=== PATIENT | female | born 1965 | race Caucasian/White ===

== ENCOUNTER 2019-11-17 16:52 | Outpatient (CLI) | payer BC, SELFPAY ==
--- NOTE | ~2019-11-17 | US_ITS ---
EXAMINATION: US venous doppler LE RT EXAM DATE: 11/17/2019 17:48 INDICATION: Right leg swelling. TECHNIQUE: Multiple grayscale, color flow and Doppler images of the right lower extremity deep venous system were obtained and reviewed. There is no prior study for comparison. FINDINGS: The right common femoral, femoral and profunda veins demonstrate normal color flow, respira tory variation, augmentation and compressibility. Compressibility, color flow confirmed within the r ight popliteal, posterior tibial, peroneal, and greater saphenous veins. IMPRESSION: 1. No right lower extremity deep venous thrombosis. Reviewed, dictated and finalized at location A.
== END 2019-11-17 16:53 | disposition home or self-care (01) ==
LOC: ANHIMG 16:56
PROVIDERS: PCP Physician Assistant; Visit Provider Orthopaedic Surgery
DX: R60.0 Localized edema (principal)
CPT/HCPCS: 93971

== ENCOUNTER 2022-05-17 15:57 | Outpatient (CLI) | payer BC, SELFPAY ==
--- NOTE | ~2022-05-17 | US_ITS ---
EXAMINATION: US venous doppler [facility] DATE: 05/17/2022 16:33 INDICATION: Left lower limb pain. TECHNIQUE: Grayscale ultrasound images without and with compression and Doppler ultrasound images of the left lower extremity veins were obtained. COMPARISON: None. FINDINGS: The visualized portions of left common femoral vein, profunda (deep) femoral vein, femoral vein, popl iteal vein, peroneal veins, posterior tibial veins, and greater saphenous vein outflow are patent. Th ere is a knee joint effusion. IMPRESSION: 1. No deep venous thrombosis. 2. Knee joint effusion. Reviewed, dictated and finalized at location A. [employer]
== END 2022-05-17 15:58 | disposition home or self-care (01) ==
PROVIDERS: PCP Physician Assistant; Visit Provider Physician Assistant
DX: M79.605 Pain in left leg (principal); M25.462 Effusion, left knee
CPT/HCPCS: 93971